=== PATIENT | male | born 1965 | race Caucasian/White ===

== ENCOUNTER 2017-09-02 23:17 | Emergency (ER) | payer OTHER ==
--- NOTE | 2017-09-03 02:50 | EDPHYS ---
Physician Documentation [facility] Name: Eloy Alvarez Age: 52 yrs Sex: Male : 1965 Arrival Date: 09/02/2017 Time: 23:22 Bed 15 Private MD: ED Physician Arya Jones HPI: 09/03 01:27 This 52 yrs old Male presents to ER via Ambulatory with complaints of snw Congestion, Cough. 01:27 The patient or guardian reports cough, described as moderate. Onset: The snw symptoms/episode began/occurred suddenly, 4 day(s) ago, and became persistent. Associated signs and symptoms: Pertinent positives: this patient has no pertinent positive symptoms. Severity of symptoms: At their worst the symptoms were moderate. The patient has experienced a previous episode. The patient has not recently seen a physician. Sees Dr. Nava and Dr. Henry. Historical: - Allergies: 09/02 23:47 No Known Allergies; mw - Home Meds: 23:47 Lasix Oral [Active]; Plavix Oral [Active]; Tricor Oral [Active]; Lopressor Oral mw [Active]; Wellbutrin Oral [Active]; Fluoxetine Oral [Active]; - PMHx: 23:47 Myocardial infarction; Hypertension; mw - PSHx: 23:47 cardiac stents; mw - Immunization history:: Adult Immunizations up to date. - Social history:: Smoking status: Patient/guardian denies using tobacco, the patient reports quitting approximately 14 years ago. ROS: 09/03 01:25 Constitutional: Negative for fever, chills, and weight loss, Eyes: Negative for injury, snw pain, redness, and discharge, ENT: Negative for injury, pain, and discharge, Neck: Negative for injury, pain, and swelling, Cardiovascular: Negative for chest pain, palpitations, and edema, Respiratory: Negative for shortness of breath, wheezing, and pleuritic chest pain, + cough Abdomen/GI: Negative for abdominal pain, nausea, vomiting, diarrhea, and constipation, Back: Negative for injury and pain, : Negative for injury, bleeding, discharge, and swelling, MS/Extremity: Negative for injury and deformity, Skin: Negative for injury, rash, and discoloration, Neuro: Negative for headache, weakness, numbness, tingling, and seizure. Exam: 01:25 Constitutional: This is a well developed, well nourished patient who is awake, alert, snw and in no acute distress. Head/Face: Normocephalic, atraumatic. Eyes: Pupils equal round and reactive to light, extra-ocular motions intact. Lids and lashes normal. Conjunctiva and sclera are non-icteric and not injected. Cornea within normal limits. Periorbital areas with no swelling, redness, or edema. 01:25 Neck: Trachea midline, no thyromegaly or masses palpated, and no cervical lymphadenopathy. Supple, full range of motion without nuchal rigidity, or vertebral point tenderness. No Meningismus. Chest/axilla: Normal chest wall appearance and motion. Nontender with no deformity. No lesions are appreciated. Cardiovascular: Regular rate and rhythm with a normal S1 and S2. No gallops, murmurs, or rubs. Normal PMI, no JVD. No pulse deficits. Abdomen/GI: Soft, non-tender, with normal bowel sounds. No distension or tympany. No guarding or rebound. No evidence of tenderness throughout. Back: No spinal tenderness. No costovertebral tenderness. Full range of motion. Skin: Warm, dry with normal turgor. Normal color with no rashes, no lesions, and no evidence of cellulitis. MS/ Extremity: Pulses equal, no cyanosis. Neurovascular intact. Full, normal range of motion. Neuro: Awake and alert, GCS 15, oriented to person, place, time, and situation. Cranial nerves II-XII grossly intact. Motor strength 5/5 in all extremities. Sensory grossly intact. Cerebellar exam normal. Normal gait. 01:25 ENT: TM's: are normal, Nose: Nasal mucosa: edematous, Mouth: is normal, Posterior pharynx: post nasal drip, tonsillith noted to right tonsil, Voice: is normal. 01:25 Respiratory: the patient does not display signs of respiratory distress. Vital Signs: 09/02 23:47 BP 126 / 81; Pulse 80; Resp 20; Temp 99.5; Pulse Ox 97% ; Weight 121.11 kg; Height 6 mw ft. 0 in. (182.88 cm); Pain 0/10; 09/03 00:48 BP 146 / 82; Pulse 66; Resp 18; Temp 99.2(O); Pulse Ox 100% on R/A; aa1 02:28 BP 136 / 85; Pulse 71; Resp 18; Pulse Ox 99% on R/A; Pain 0/10; aa1 09/02 23:47 Body Mass Index 36.21 (121.11 kg, 182.88 cm) mw MDM: 00:58 Patient medically screened. [facility] 02:52 Antibiotic administration: Not indicated, the patient does not have an appreciated snw infiltrate, the patient has a suspected viral illness. Data reviewed: vital signs, nurses notes. Data interpreted: Pulse oximetry: on room air is 99 %. Interpretation: normal. Counseling: I had a detailed discussion with the patient and/or guardian regarding: the historical points, exam findings, and any diagnostic results supporting the discharge/admit diagnosis, the presence of at least one elevated blood pressure reading (>120/80) during this emergency department visit, radiology results, the need for outpatient follow up, to return to the emergency department if symptoms worsen or persist or if there are any questions or concerns that arise at home. Special discussion: I have referred the patient to see his PCP for further evaluation of high blood pressure. Based on the history and exam findings, there is no indication for further emergent testing or inpatient evaluation. I discussed with the patient/guardian the need to see the primary care provider for further evaluation of the symptoms. 09/03 01:25 Order name: Chest Pa And Lat (2 Views) XRAY snw Administered Medications: No medications were administered Disposition: 09:10 Co-signature as Attending Physician, Arya Jones MD I agree with the assessment and [facility] plan of care. Disposition: 09/03/17 02:50 Discharged to Home. Impression: Acute upper respiratory infection, unspecified, Nasal congestion. - Condition is Stable. - Discharge Instructions: Hay Fever, Upper Respiratory Infection, Adult, Cool Mist Vaporizers, Rehydration, Adult. - Prescriptions for Nasonex 50 mcg/actuation Nasal spray,non- aerosol - spray 2 spray by INTRANASAL route once daily; 1 Container. - Work release form, Medication Reconciliation Form, Thank You Letter, Antibiotic Education, Prescription Opioid Use form. - Follow up: Private Physician; When: 1 - 2 days; Reason: Recheck today's complaints, Continuance of care, Re-evaluation by your physician. Follow up: Emergency Department; When: As needed; Reason: Worsening of condition. Signatures: Dispatcher [employer] Cynthia Lopez RN RN mw Bonnie Esquivel RN RN aa1 Arya Jones MD MD cha Therrien, Shelly, IRON-C MAIL CENSOR-Csnw
--- NOTE | 2017-09-03 02:50 | ER ---
Nurse's Notes [facility] Name: Eloy Alvarez Age: 52 yrs Sex: Male : 1965 Arrival Date: 09/02/2017 Time: 23:22 Bed 15 Private MD: Diagnosis: Acute upper respiratory infection, unspecified;Nasal congestion Presentation: 09/02 23:43 Presenting complaint: Patient states: non productive cough and nasal congestion x 5 mw days. Transition of care: patient was not received from another setting of care. Onset of symptoms was August 28, 2017. Care prior to arrival: Medication(s) given: Mucinex. 23:43 Method Of Arrival: Ambulatory mw 23:43 Acuity: JOY 4 mw Triage Assessment: 23:47 General: Appears in no apparent distress. Behavior is calm, cooperative. Pain: Denies mw pain. Respiratory: Breath sounds with rhonchi bilaterally. Historical: - Allergies: 23:47 No Known Allergies; mw - Home Meds: 23:47 Lasix Oral [Active]; Plavix Oral [Active]; Tricor Oral [Active]; Lopressor Oral mw [Active]; Wellbutrin Oral [Active]; Fluoxetine Oral [Active]; - PMHx: 23:47 Myocardial infarction; Hypertension; mw - PSHx: 23:47 cardiac stents; mw - Immunization history:: Adult Immunizations up to date. - Social history:: Smoking status: Patient/guardian denies using tobacco, the patient reports quitting approximately 14 years ago. Screenin/12 00:50 Abuse screen: Denies threats or abuse. Denies injuries from another. Nutritional aa1 screening: No deficits noted. Tuberculosis screening: No symptoms or risk factors identified. Fall Risk None identified. Assessment: 00:50 General: Appears in no apparent distress. comfortable, Behavior is calm, cooperative, aa1 appropriate for age. Pain: Denies pain. Neuro: Level of Consciousness is awake, alert, obeys commands, Oriented to person, place, time, situation, Moves all extremities. Full function Gait is steady. Cardiovascular: Heart tones S1 S2 present Capillary refill < 3 seconds Patient's skin is warm and dry. Rhythm is regular. Respiratory: Reports cough that is non-productive, Airway is patent Respiratory effort is even, unlabored, Respiratory pattern is regular, symmetrical, Breath sounds are clear bilaterally. GI: No signs and/or symptoms were reported involving the gastrointestinal system. : No signs and/or symptoms were reported regarding the genitourinary system. EENT: Reports nasal congestion. Derm: Skin is intact, is healthy with good turgor, Skin is pink, warm \T\ dry. Musculoskeletal: Circulation, motion, and sensation intact. Capillary refill < 3 seconds. 02:28 Reassessment: Patient appears in no apparent distress at this time. Patient and/or aa1 family updated on plan of care and expected duration. Pain level reassessed. Patient is alert, oriented x 3, equal unlabored respirations, skin warm/dry/pink. Awaiting provider reassessment]. 03:10 Reassessment: Patient appears in no apparent distress at this time. Patient is alert, aa1 oriented x 3, equal unlabored respirations, skin warm/dry/pink. Discussed d/c \T\ f/u instructions with pt; denies questions or concerns at this time Patient states feeling better. Vital Signs: 09/02 23:47 BP 126 / 81; Pulse 80; Resp 20; Temp 99.5; Pulse Ox 97% ; Weight 121.11 kg; Height 6 mw ft. 0 in. (182.88 cm); Pain 0/10; 09/03 00:48 BP 146 / 82; Pulse 66; Resp 18; Temp 99.2(O); Pulse Ox 100% on R/A; aa1 02:28 BP 136 / 85; Pulse 71; Resp 18; Pulse Ox 99% on R/A; Pain 0/10; aa1 09/02 23:47 Body Mass Index 36.21 (121.11 kg, 182.88 cm) ED Course: 09/02 23:22 Patient arrived in ED. do 23:44 Triage completed. mw 23:47 Arm band placed on right wrist. Patient placed in waiting room. 09/03 00:48 Bonnie Esquivel RN is Primary Nurse. aa1 00:49 Patient has correct armband on for positive identification. Bed in low position. Call aa1 light in reach. Pulse ox on. NIBP on. 00:57 Milka Cross FNP-C is PHCP. snw 00:57 Arya Jones MD is Attending Physician. snw 02:36 Patient moved to radiology via wheelchair. kw 02:36 X-ray completed. Patient tolerated procedure well. kw 02:36 Patient moved back from radiology. kw 02:37 Chest Pa And Lat (2 Views) XRAY In Process Unspecified. EDMS 03:10 No provider procedures requiring assistance completed. Patient did not have IV access aa1 during this emergency room visit. Administered Medications: No medications were administered Outcome: 02:50 Discharge ordered by MD. snw 03:10 Discharged to home ambulatory, with family. aa1 03:10 Condition: good 03:10 Discharge instructions given to patient, Instructed on discharge instructions, follow up and referral plans. medication usage, Demonstrated understanding of instructions, follow-up care, medications, Prescriptions given X 1. 03:12 Patient left the ED. aa1 Signatures: Dispatcher [employer] EDMS Cynthia Seymour RN RN Bonnie Fletcher RN RN aa1 Milka Cross, FOOD SAFETY AUDITOR-C FOOD SAFETY AUDITOR-Csnw Katie Holbrook Danielle do
[2017-09-03 03:16] VITALS: TEMP 99.2
[2017-09-03 03:17] VITALS: BP 136/85; O2SAT 99
--- NOTE | 2017-09-03 08:51 | RAD REPORT ---
EXAM DESCRIPTION: Yoselyn Pereyra (2 Views)09/03/2017 2:41 am CLINICAL HISTORY: Cough COMPARISON: None FINDINGS: The lungs appear clear of acute infiltrate. The heart is normal size IMPRESSION: No acute abnormalities displayed
== END 2017-09-03 03:12 | disposition home or self-care (01) ==
LOC: ER 23:17
DX: J06.9 Acute upper respiratory infection, unspecified (principal); R09.81 Nasal congestion; I10 Essential (primary) hypertension; I25.2 Old myocardial infarction; Z79.01 Long term (current) use of anticoagulants; Z95.818 Presence of other cardiac implants and grafts
CPT/HCPCS: 71046; 99283

== ENCOUNTER 2019-02-03 01:21 | Emergency (ER) | payer OTHER ==
[2019-02-03] MEDS ORDERED: ALBUTEROL 2.5 MG/3 ML NEB SOL ONE (03:02)
[2019-02-03] MEDS ORDERED: IPRATROPIUM BROM 0.5MG/2.5ML ONE (03:02)
[2019-02-03 03:03] LABS: Arterial Blood Carboxyhemoglob 0.6 % (0-1.5); Blood O2 Saturation 96.3 % (92-98.5)
[2019-02-03] MEDS ORDERED: LORAZEPAM 1 MG TABLET ONE (03:45)
[2019-02-03 03:48] LABS: Absolute Lymphocytes (CBC) 1.9 K/uL (0.7-4.9); Basophils % 0.9 % (0-1.3); Hematocrit 39.6 % (39.6-49.0); Lymphocytes % 19.6 % (15.3-44.8); MPV 10.7 fL (7.6-11.3); RBC Red Blood Cell Count 4.46 M/uL (4.33-5.43)
[2019-02-03 03:52] LABS: Protime INR 1.09
[2019-02-03 04:03] LABS: ALT/SGPT 46 U/L (12-78); AST/SGOT 43 U/L (15-37); Alkaline Phosphatase 80 U/L (45-117); BUN Blood Urea Nitrogen 14 mg/dL (7-18); Bicarbonate 25 mmol/L (21-32); Bilirubin Direct 0.2 mg/dL (0-0.2); Bilirubin Total 0.5 mg/dL (0.2-1.0); Glucose Level 88 mg/dL (74-106); Magnesium 2.3 mg/dL (1.8-2.4); NT PRO-BNP 108 pg/mL (<125); Potassium 3.5 mmol/L (3.5-5.1); Protein, Total 7.4 g/dL (6.4-8.2); Sodium Level 140 mmol/L (136-145); Troponin (Emerg Dept Use Only) < 0.02 ng/mL (0.0-0.045)
--- NOTE | 2019-02-03 04:17 | ER ---
Nurse's Notes [facility] Name: Eloy Alvarez Age: 53 yrs Sex: Male : 1965 Arrival Date: 02/03/2019 Time: 01:26 Bed 18 Private MD: Diagnosis: Dyspnea;Anxiety disorder, unspecified;Chronic obstructive pulmonary disease, unspecified;Schizophrenia;Unspecified kidney failure-insufficency Presentation: 02/03 01:45 Presenting complaint: Patient states: that he is having difficulty breathing for many years. Also has body aches because he has been pacing the floor 16 hrs a day to make the breathing better for some time. States that he came in today because it has been getting worse over the last 2 years. Transition of care: patient was not received from another setting of care. Onset of symptoms was 2015. Risk Assessment: Do you want to hurt yourself or someone else? Patient reports no desire to harm self or others. Initial Sepsis Screen: Does the patient meet any 2 criteria? No. Patient's initial sepsis screen is negative. Does the patient have a suspected source of infection? No. Patient's initial sepsis screen is negative. Care prior to arrival: None. 01:45 Method Of Arrival: Ambulatory 01:45 Acuity: JOY 3 fc Triage Assessment: 02:12 Respiratory: Onset: The symptoms/episode began/occurred "for 30 years", the patient has jd3 mild shortness of breath. Historical: - Allergies: 01:51 No Known Allergies; fc - PMHx: 01:51 Hypertension; Myocardial infarction; Depression; Anxiety; Seizures; fc - PSHx: 01:51 Heart stents; fc - Immunization history:: Last tetanus immunization: up to date. - Social history:: Smoking status: Patient/guardian denies using tobacco, the patient reports quitting approximately 15 years ago. - Ebola Screening: : Patient negative for fever greater than or equal to 101.5 degrees Fahrenheit, and additional compatible Ebola Virus Disease symptoms Patient denies exposure to infectious person Patient denies travel to an Ebola-affected area in the 21 days before illness onset. - Family history:: not pertinent. Screenin:11 Abuse screen: Denies threats or abuse. Nutritional screening: No deficits noted. jd3 Tuberculosis screening: No symptoms or risk factors identified. Fall Risk Ambulatory Aid- None/Bed Rest/Nurse Assist (0 pts). Gait- Normal/Bed Rest/Wheelchair (0 pts) Mental Status- Oriented to own ability (0 pts). Total Bland Fall Scale indicates No Risk (0-24 pts). Assessment: 02:10 General: Appears in no apparent distress. uncomfortable, Behavior is calm, cooperative, jd3 appropriate for age. Pain: Denies pain. Neuro: Level of Consciousness is awake, alert, obeys commands, Oriented to person, place, time, situation. Cardiovascular: Capillary refill < 3 seconds Patient's skin is warm and dry. Respiratory: Reports shortness of breath since pt states: "for the last 30 years." Airway is patent Respiratory effort is even, unlabored, Respiratory pattern is regular, symmetrical, Breath sounds are clear bilaterally. GI: No signs and/or symptoms were reported involving the gastrointestinal system. : No signs and/or symptoms were reported regarding the genitourinary system. EENT: No signs and/or symptoms were reported regarding the EENT system. Derm: Skin is intact, Skin is dry, Skin is normal, Skin temperature is warm. Musculoskeletal: Circulation, motion, and sensation intact. Range of motion: intact in all extremities. 02:40 Reassessment: pt refusing IV. agreed to blood work and other test. jd3 03:26 Reassessment: Patient appears in no apparent distress at this time. No changes from jd3 previously documented assessment. Patient and/or family updated on plan of care and expected duration. Pain level reassessed. Patient is alert, oriented x 3, equal unlabored respirations, skin warm/dry/pink. 03:47 Reassessment: pt voicing anxiety about breathing better. verbal reassurance given to pt jd3 and provider notified. 04:27 Reassessment: Patient appears in no apparent distress at this time. Patient and/or jd3 family updated on plan of care and expected duration. Pain level reassessed. Patient is alert, oriented x 3, equal unlabored respirations, skin warm/dry/pink. pt reported understanding of discharge instructions. even and steady gait upon discharge. Patient states feeling better. Vital Signs: 01:45 BP 102 / 76; Pulse 61; Resp 18; Temp 97.7(O); Pulse Ox 100% on R/A; Weight 120.2 kg fc (R); Height 6 ft. 0 in. (182.88 cm) (R); Pain 7/10; 03:25 BP 117 / 74; Pulse 58; Resp 17 S; Pulse Ox 100% on R/A; jd3 01:45 Body Mass Index 35.94 (120.20 kg, 182.88 cm) ED Course: 01:26 Patient arrived in ED. ag3 01:45 Arm band placed on Patient placed in an exam room, on a stretcher. 01:48 Triage completed. 02:07 Arya Jones MD is Attending Physician. otis 02:08 Chao Lopez, LANCE is Primary Nurse. jd3 02:12 Patient has correct armband on for positive identification. Bed in low position. Call jd3 light in reach. Side rails up X 1. 02:47 X-ray completed. Portable x-ray completed in exam room. Patient tolerated procedure kw well. 02:49 XRAY Chest (1 view) In Process Unspecified. EDFL 04:28 No provider procedures requiring assistance completed. Patient did not have IV access jd3 during this emergency room visit. Administered Medications: 03:05 Drug: Albuterol 2.5 mg Route: Inhalation; jd3 03:47 Follow up: Response: No adverse reaction jd3 03:05 Drug: AtroVENT Aerosol 0.5 mg Route: Inhalation; jd3 03:48 Follow up: Response: No adverse reaction jd3 03:45 Drug: Ativan 1 mg Route: PO; jd3 04:27 Follow up: Response: No adverse reaction jd3 04:27 Not Given (Patient Refused): NS 0.9% 1000 ml IV at 125 ml/hr continuous jd3 Outcome: 04:16 Discharge ordered by . otis 04:28 Discharged to home ambulatory. jd3 04:28 Condition: stable 04:28 Discharge instructions given to patient, Instructed on discharge instructions, follow up and referral plans. medication usage, Demonstrated understanding of instructions, follow-up care, medications, Prescriptions given X 4. 04:29 Patient left the ED. jd3 Signatures: Dispatcher [employer] EDFL Arya Jones MD MD cha Chretien, Felicia, RN RN Katie Holbrook Jonathon, RN RN j Brooklyn Pelayo ag3 Corrections: (The following items were deleted from the chart) 03:27 03:26 Reassessment: Patient appears in no apparent distress at this time. No changes jd3 from previously documented assessment. Patient and/or family updated on plan of care and expected duration. Pain level reassessed. Patient is alert, oriented x 3, equal unlabored respirations, skin warm/dry/pink. awaiting admission orders and room assignment jd3 03:30 03:25 BP 113 / 69; Pulse 96bpm; Resp 17bpm; Spontaneous; Pulse Ox 95% RA; Pain 0/10; [id number]
--- NOTE | 2019-02-03 04:18 | EDPHYS ---
Physician Documentation [facility] Name: Eloy Alvarez Age: 53 yrs Sex: Male : 1965 Arrival Date: 02/03/2019 Time: 01:26 Bed 18 Private MD: ROSEANNA Physician Arya Jones HPI: 02/03 02:29 This 53 yrs old Male presents to ER via Ambulatory with complaints of otis Breathing Difficulty. 02:29 The patient has shortness of breath at rest, with light activity, that woke him/her otis from sleep. Onset: The symptoms/episode began/occurred just prior to arrival, this morning. Duration: The symptoms are continuous, and are steadily getting worse. The patient's shortness of breath is aggravated by nothing, is alleviated by nothing. Associated signs and symptoms: Pertinent positives: anxiety. Severity of symptoms: At their worst the symptoms were mild moderate in the emergency department the symptoms have improved moderately. The patient has experienced similar episodes in the past, a few times. Historical: - Allergies: 01:51 No Known Allergies; fc - PMHx: 01:51 Hypertension; Myocardial infarction; Depression; Anxiety; Seizures; fc - PSHx: 01:51 Heart stents; fc - Immunization history:: Last tetanus immunization: up to date. - Social history:: Smoking status: Patient/guardian denies using tobacco, the patient reports quitting approximately 15 years ago. - Ebola Screening: : Patient negative for fever greater than or equal to 101.5 degrees Fahrenheit, and additional compatible Ebola Virus Disease symptoms Patient denies exposure to infectious person Patient denies travel to an Ebola-affected area in the 21 days before illness onset. - Family history:: not pertinent. ROS: 02:29 Constitutional: Negative for fever, chills, and weight loss, Eyes: Negative for injury, otis pain, redness, and discharge, ENT: Negative for injury, pain, and discharge, Neck: Negative for injury, pain, and swelling, Cardiovascular: Negative for chest pain, palpitations, and edema, Abdomen/GI: Negative for abdominal pain, nausea, vomiting, diarrhea, and constipation, Back: Negative for injury and pain, : Negative for injury, bleeding, discharge, and swelling, MS/Extremity: Negative for injury and deformity, Skin: Negative for injury, rash, and discoloration, Neuro: Negative for headache, weakness, numbness, tingling, and seizure, Allergy/Immunology: Negative for hives, rash, and allergies, Endocrine: Negative for neck swelling, polydipsia, polyuria, polyphagia, and marked weight changes, Hematologic/Lymphatic: Negative for swollen nodes, abnormal bleeding, and unusual bruising. 02:29 Respiratory: Positive for cough, shortness of breath, at rest. 02:29 Psych: Positive for anxiety. Exam: :29 Constitutional: This is a well developed, well nourished patient who is awake, alert, otis and in no acute distress. Head/Face: Normocephalic, atraumatic. Eyes: Pupils equal round and reactive to light, extra-ocular motions intact. Lids and lashes normal. Conjunctiva and sclera are non-icteric and not injected. Cornea within normal limits. Periorbital areas with no swelling, redness, or edema. ENT: Nares patent. No nasal discharge, no septal abnormalities noted. Tympanic membranes are normal and external auditory canals are clear. Oropharynx with no redness, swelling, or masses, exudates, or evidence of obstruction, uvula midline. Mucous membranes moist. Neck: Trachea midline, no thyromegaly or masses palpated, and no cervical lymphadenopathy. Supple, full range of motion without nuchal rigidity, or vertebral point tenderness. No Meningismus. Chest/axilla: Normal chest wall appearance and motion. Nontender with no deformity. No lesions are appreciated. Cardiovascular: Regular rate and rhythm with a normal S1 and S2. No gallops, murmurs, or rubs. Normal PMI, no JVD. No pulse deficits. Respiratory: Lungs have equal breath sounds bilaterally, clear to auscultation and percussion. No rales, rhonchi or wheezes noted. No increased work of breathing, no retractions or nasal flaring. Abdomen/GI: Soft, non-tender, with normal bowel sounds. No distension or tympany. No guarding or rebound. No evidence of tenderness throughout. Back: No spinal tenderness. No costovertebral tenderness. Full range of motion. Male : Normal genitalia with no discharge or lesions. Skin: Warm, dry with normal turgor. Normal color with no rashes, no lesions, and no evidence of cellulitis. MS/ Extremity: Pulses equal, no cyanosis. Neurovascular intact. Full, normal range of motion. Neuro: Awake and alert, GCS 15, oriented to person, place, time, and situation. Cranial nerves II-XII grossly intact. Motor strength 5/5 in all extremities. Sensory grossly intact. Cerebellar exam normal. Normal gait. Psych: Awake, alert, with orientation to person, place and time. Behavior, mood, and affect are within normal limits. Vital Signs: 01:45 BP 102 / 76; Pulse 61; Resp 18; Temp 97.7(O); Pulse Ox 100% on R/A; Weight 120.2 kg fc (R); Height 6 ft. 0 in. (182.88 cm) (R); Pain 7/10; 03:25 BP 117 / 74; Pulse 58; Resp 17 S; Pulse Ox 100% on R/A; jd3 01:45 Body Mass Index 35.94 (120.20 kg, 182.88 cm) MDM: 02:08 Patient medically screened. [facility] 02:31 Data reviewed: vital signs, nurses notes, lab test result(s), EKG, radiologic studies, otis plain films. 02/03 02:29 Order name: Basic Metabolic Panel; Complete Time: 04:15 [facility] 02/03 02:29 Order name: CBC with Diff; Complete Time: 04:15 [facility] 02/03 02:29 Order name: LFT's; Complete Time: 04:15 [facility] 02/03 02:29 Order name: Magnesium; Complete Time: 04:15 [facility] 02/03 02:29 Order name: NT PRO-BNP; Complete Time: 04:15 [facility] 02/03 02:29 Order name: PT-INR; Complete Time: 04:15 [facility] 02/03 02:29 Order name: Troponin (emerg Dept Use Only); Complete Time: 04:15 [facility] 02/03 02:29 Order name: XRAY Chest (1 view) [facility] 02/03 02:29 Order name: ABG; Complete Time: 03:23 [facility] 02/03 02:29 Order name: D-Dimer; Complete Time: 04:15 [facility] 02/03 02:29 Order name: EKG; Complete Time: 02:31 [facility] 02/03 02:29 Order name: Cardiac monitoring; Complete Time: 03:08 [facility] 02/03 02:29 Order name: EKG - Nurse/Tech; Complete Time: 03:08 [facility] 02/03 02:29 Order name: O2 Per Protocol; Complete Time: 03:05 [facility] 02/03 02:29 Order name: O2 Sat Monitoring; Complete Time: 03:05 [facility] Administered Medications: 03:05 Drug: Albuterol 2.5 mg Route: Inhalation; jd3 03:47 Follow up: Response: No adverse reaction jd3 03:05 Drug: AtroVENT Aerosol 0.5 mg Route: Inhalation; jd3 03:48 Follow up: Response: No adverse reaction jd3 03:45 Drug: Ativan 1 mg Route: PO; jd3 04:27 Follow up: Response: No adverse reaction jd3 04:27 Not Given (Patient Refused): NS 0.9% 1000 ml IV at 125 ml/hr continuous jd3 Disposition: 02/03/19 04:16 Discharged to Home. Impression: Dyspnea, Anxiety disorder, unspecified, Chronic obstructive pulmonary disease, unspecified, Schizophrenia, Unspecified kidney failure - insufficency. - Condition is Stable. - Discharge Instructions: Panic Attacks, Chronic Bronchitis, Schizophrenia, Chronic Obstructive Pulmonary Disease Exacerbation, Panic Attacks, [id number], Chronic Kidney Disease, Adult, [id number], Cough, Adult. - Prescriptions for Zithromax Z- Eleazar 250 mg Oral Tablet - take 1 tablet by ORAL route as directed for 5 days Day 1 - take two (2) tablets one time. Day 2, 3, 4 , 5 take one (1) tablet once daily.; 6 tablet. Medrol (Eleazar) 4 mg Oral Tablets, Dose Pack - take 1 tablet by ORAL route as directed - follow package instructions; 1 packet. Albuterol Sulfate 90 mcg/actuation - inhale 1-2 puff by INHALATION route every 4-6 hours; 1 Inhaler. Klonopin 1 mg Oral Tablet - take 1 tablet by ORAL route every 12 hours As needed; 20 tablet. - Medication Reconciliation Form, Thank You Letter, Antibiotic Education, Prescription Opioid Use form. - Follow up: Private Physician; When: 2 - 3 days; Reason: Recheck today's complaints, Continuance of care, Re-evaluation by your physician. - Problem is new. - Symptoms have improved. Signatures: Dispatcher [employer] Arya Villeda MD MD cha Chretien, Felicia, RN RN fc Davies, Jonathon, RN RN jd3 Corrections: (The following items were deleted from the chart) 04:29 04:16 02/03/2019 04:16 Discharged to Home. Impression: Dyspnea; Anxiety disorder, jd3 unspecified; Chronic obstructive pulmonary disease, unspecified; Schizophrenia; Unspecified kidney failure - insufficency. Condition is Stable. Discharge Instructions: Panic Attacks, Chronic Bronchitis, Chronic Obstructive Pulmonary Disease Exacerbation, Panic Attacks, Vitt-[id number]-Fpok, Cough, Adult, Schizophrenia. Prescriptions for Zithromax Z-Eleazar 250 mg Oral Tablet - take 1 tablet by ORAL route as directed for 5 days Day 1 - take two (2) tablets one time. Day 2, 3, 4 , 5 take one (1) tablet once daily.; 6 tablet, Medrol (Eleazar) 4 mg Oral Tablets, Dose Pack - take 1 tablet by ORAL route as directed - follow package instructions; 1 packet, Albuterol Sulfate 90 mcg/actuation - inhale 1-2 puff by INHALATION route every 4-6 hours; 1 Inhaler, Klonopin 1 mg Oral Tablet - take 1 tablet by ORAL route every 12 hours As needed; 20 tablet. and Forms are Medication Reconciliation Form, Thank You Letter, Antibiotic Education, Prescription Opioid Use. Follow up: Private Physician; When: 2 - 3 days; Reason: Recheck today's complaints, Continuance of care, Re-evaluation by your physician. Problem is new. Symptoms have improved. otis
[2019-02-03 04:45] VITALS: TEMP 97.7; O2SAT 100
[2019-02-03 04:47] VITALS: BP 117/74
--- NOTE | 2019-02-03 08:13 | RAD REPORT ---
EXAM DESCRIPTION: RAD - Chest Single View - 02/03/2019 2:48 am CLINICAL HISTORY: Cough;COPD Chest pain. COMPARISON: Chest Pa And Lat (2 Views) dated 09/03/2017; CHEST SINGLE VIEW dated 12/15/2011 FINDINGS: Portable technique limits examination quality. The lungs are grossly clear. The heart is normal in size. No displaced fractures. IMPRESSION: No acute intrathoracic process suspected.
--- NOTE | 2019-02-03 11:08 | EKG ---
Test Date: 2019-02-03 Test Time: 02:37:59 Director Adult: DEWEY MEASUREMENT RESULTS: Intervals: Rate: 59 OH: 206 QRSD: 126 QT: 454 QTc: 449 [place]: P: 30 OH: 206 QRS: -15 T: 71 INTERPRETIVE STATEMENTS: Sinus bradycardia Nonspecific intraventricular block Anterolateral infarct, age undetermined Abnormal ECG Compared to ECG 12/15/2011 01:52:39 Sinus rhythm no longer present Left-axis deviation no longer present Left ventricular hypertrophy no longer present Early repolarization no longer present Myocardial infarct finding still present Electronically Signed On 02-03-19 11:06:04 CDT by iRcco Benjamin
== END 2019-02-03 04:29 | disposition home or self-care (01) ==
LOC: ER 01:21
DX: J44.9 Chronic obstructive pulmonary disease, unspecified (principal); F41.9 Anxiety disorder, unspecified; N19 Unspecified kidney failure; F20.9 Schizophrenia, unspecified
CPT/HCPCS: 36415; 71045; 80048; 80076; 82805; 83735; 83880; 84484; 85025; 85379; 85610; 93005; 99284

== ENCOUNTER 2024-08-03 21:47 | Emergency (ER) | payer OTHER ==
[2024-08-03 23:47] LABS: Sqamous Epithelial None Seen /HPF (None Seen); Urine Bacteria <20 /HPF (<20); Urine Culture Reflex Order REFLEXED; Urine Mucus Slight /HPF (None Seen); Urine RBC >50 /HPF (None Seen); Urine WBC >50 /HPF (<5); Urine WBC Clump Occasional /HPF (None Seen)
[2024-08-03 23:48] LABS: Specific Gravity 1.012 (1.005-1.030); Urine Bilirubin NEGATIVE (Negative); Urine Blood 3+ (OVER) (Negative); Urine Clarity Extremely Turbid (Clear); Urine Color Light-Red (Yellow); Urine Glucose NEGATIVE (Negative); Urine Ketones NEGATIVE (Negative); Urine Microscopic Reflex YN NO UMIC; Urine Nitrite NEGATIVE (Negative); Urine Protein 3+ (Negative); Urine Urobilinogen Normal (Normal)
[2024-08-03 23:52] LABS: Absolute Basophils 0.1 K/uL (0-0.5); Absolute Eosinophils 0.2 K/uL (0-0.5); Absolute Neutrophil 13.4 K/uL (1.8-8.0); Basophils % 0.5 % (0-1.3); Eosinophils % 1.2 % (0-4.4); Hematocrit 38.8 % (39.6-49.0); Hemoglobin 13.4 g/dL (13.6-17.9); Lymphocytes % 6.4 % (15.3-44.8); MCH 30.6 pg (27.0-35.0); MCHC 34.6 g/dL (32.0-36.0); MCV 88.3 fL (80-100); MPV 10.2 fL (7.6-11.3); Monocytes % 6.6 % (3.3-12.3); Neutrophils % 85.3 % (41.7-73.7); Platelets 241 thou/uL (152-406); RBC Red Blood Cell Count 4.39 M/uL (4.33-5.43); Red Cell Distribution Width 13.8 % (12.1-15.2)
[2024-08-03 23:58] LABS: Albumin 3.5 g/dL (3.4-5.0); Albumin/Globulin Ratio 0.8 (1.1-1.8); Anion Gap 8.4 mEq/L (5.0-15.0); Bilirubin Total 0.7 mg/dL (0.2-1.0); Globulin 4.3 g/dL (2.3-3.5); Potassium 3.4 mEq/L (3.5-5.1); Protein, Total 7.8 g/dL (6.4-8.2)
--- NOTE | 2024-08-04 | RAD REPORT ---
EXAM: CT Abdomen and Pelvis Without Intravenous Contrast CLINICAL HISTORY: HEMATURIA TECHNIQUE: Axial computed tomography images of the abdomen and pelvis without intravenous contrast. Sagittal a nd coronal reformatted images were created and reviewed. This CT exam was performed using one or more of the following dose reduction techniques: automated exposure control, adjustment of the mA a nd/or kV according to patient size, and/or use of iterative reconstruction technique. COMPARISON: No relevant prior studies available. FINDINGS: Lung bases: 7mm and 4mm right lower lobe nodules (series 201 images 17 and 23, respectively). No consolidation. Heart: Coronary artery calcification. ABDOMEN: Liver: Unremarkable. Gallbladder and bile ducts: Gallstones within a contracted gallbladder. No ductal dilation. Pancreas: Unremarkable. No ductal dilation. Spleen: Unremarkable. No splenomegaly. Adrenals: 1.3 cm macroscopic fat density left adrenal nodule compatible with a myelolipoma. No foll ow-up imaging is recommended. JACR 2017 Dec; 14(8):1038-44, JCAT 2016 Jul-Aug; 40(2):194-200, Urol J spring; 3(2):71-4. Kidneys and ureters: No calculi. No hydronephrosis. Right renal cysts, the largest measuring 3.9 cm . No follow-up imaging is recommended. JACR 2017; 264-273, Management of the Incidental Renal Mass on CT, [employer] 2020; 814-848, Bosniak Classification of Cystic Renal Masses, Version 2019. Stomach and bowel: Unremarkable. No obstruction. No mucosal thickening. PELVIS: Appendix: Normal caliber appendix. No findings to suggest acute appendicitis. Bladder: Moderate to severe urinary bladder wall thickening. No stones. Reproductive: Unremarkable as visualized. ABDOMEN and PELVIS: Intraperitoneal space: Unremarkable. No free air. No significant fluid collection. Bones/joints: Multilevel spondylosis. No acute fracture. No dislocation. Soft tissues: Small fat-containing umbilical and bilateral inguinal hernias. Vasculature: Mild atherosclerotic disease. No abdominal aortic aneurysm. Lymph nodes: Car hepatic and portacaval lymph nodes measuring up to 14 mm in short axis. IMPRESSION: 1. No renal, ureteral or bladder calculi. No evidence for renal obstruction. 2. Moderate to severe urinary bladder wall thickening. Please correlate clinically for cystitis. 3. Right lower lobe nodules measuring 7 mm and 4 mm. Per Fleischner Society Guidelines, recommend a non-contrast Chest CT at 3-6 months, then consider another non-contrast Chest CT at 18-24 months. If patient is low risk for malignancy, non-contrast Chest CT at 18-24 months is optional. These guide lines do not apply to immunocompromised patients and patients with cancer. Follow up in patients with significant comorbidities as clinically warranted. For lung cancer screening, adhere to Lung-RAD S guidelines. Reference: Radiology. 2017; 284(1):228-43. 4. Other findings as above. Electronically signed by: Dm iVllanueva MD 08/03/2024 11:31 PM CDT RP Due to temporary technical issues with the PACS/[employer] reporting system, reports are being celestine d by the in-house radiologist without review as a courtesy to ensure prompt reporting the interpreting radiologist is fully responsible for the content of the report. Transcribed Date/Time: 08/03/2024 11:59 PM
--- NOTE | 2024-08-04 00:11 | ER ---
Nurse's Notes [facility] Name: Eloy Alvarez Age: 59 yrs Sex: Male : 1965 Arrival Date: 08/03/2024 Time: 21:47 Bed 5 Private MD: Diagnosis: Acute cystitis with hematuria Presentation: 08/03 22:15 Chief complaint: Patient states: BURNING WITH URINATION, HEMATURIA FOR THREE DAYS. ha1 22:15 Coronavirus screen: Client denies travel out of the [place] in the last 14 days. Ebola ha1 Screen: No symptoms or risks identified at this time. Initial Sepsis Screen: Does the patient meet any 2 criteria? No. Patient's initial sepsis screen is negative. Does the patient have a suspected source of infection? No. Patient's initial sepsis screen is negative. Risk Assessment: Do you want to hurt yourself or someone else? Patient reports no desire to harm self or others. Onset of symptoms was August 03, 2024. 22:15 Method Of Arrival: Ambulatory ha1 22:15 Acuity: JOY 3 ha1 Triage Assessment: 22:23 General: Appears comfortable, Behavior is calm, cooperative. Pain: Complains of pain in ha1 pelvis Pain currently is 8 out of 10 on a pain scale. Quality of pain is described as burning. Neuro: Level of Consciousness is awake, alert, obeys commands, Oriented to person, place, time, situation. Cardiovascular: Patient's skin is warm and dry. Respiratory: Airway is patent Respiratory effort is even, unlabored, Respiratory pattern is regular, symmetrical. : Reports burning with urination. Historical: - Allergies: 22:23 No Known Allergies; ha1 - Home Meds: 22:23 clopidogrel oral [Active]; ha1 23:44 enalapril maleate Oral [Active]; Furosemide Oral [Active]; Cogentin Oral [Active]; bm8 - PMHx: 22:23 Anxiety; Depression; Hypertension; Myocardial infarction; Seizures; ha1 - PSHx: 23:44 None; bm8 - Immunization history:: Adult Immunizations up to date. - Infectious Disease History:: Denies. - Social history:: Smoking status: Patient/guardian denies using tobacco, the patient reports quitting approximately 22 years ago. Screenin:40 [facility] ED Fall Risk Assessment (Adult) History of falling in the last 3 months, bm8 including since admission No falls in past 3 months (0 pts) Confusion or Disorientation No (0 pts) Intoxicated or Sedated No (0 pts) Impaired Gait No (0 pts) Mobility Assist Device Used No (0 pt) Altered Elimination No (0 pt) Score/Fall Risk Level 0 - 2 = Low Risk Oriented to surroundings, Maintained a safe environment, Educated pt \T\ family on fall prevention, incl call for assistance when getting out of bed, Provided non-skid footwear, Hourly rounding (assess needs \T\ fall precautionary measures) done, Used ambulatory aids as needed (educated on \T\ assisted with), Used gait belt as appropriate. Abuse screen: Denies threats or abuse. Nutritional screening: No deficits noted. Tuberculosis screening: No symptoms or risk factors identified. Assessment: 23:40 Reassessment: Patient appears in no apparent distress at this time. Patient and/or bm8 family updated on plan of care and expected duration. Pain level reassessed. Patient is alert, oriented x 3, equal unlabored respirations, skin warm/dry/pink. General: Appears in no apparent distress. comfortable, Behavior is calm, cooperative, appropriate for age. Pain: Complains of pain in pelvis Pain currently is 6 out of 10 on a pain scale. Quality of pain is described as burning, itching. Neuro: No deficits noted. Level of Consciousness is awake, alert, obeys commands, Oriented to person, place, time, situation, Appropriate for age. Cardiovascular: No deficits noted. Capillary refill < 3 seconds in bilateral fingers Patient's skin is warm and dry. Respiratory: No deficits noted. Airway is patent Trachea midline Respiratory effort is even, unlabored, Respiratory pattern is regular, symmetrical. GI: No deficits noted. No signs and/or symptoms were reported involving the gastrointestinal system. : Urine is cloudy, ruiz blood, Reports burning with urination, pain urgency. EENT: No signs and/or symptoms were reported regarding the EENT system. Derm: No signs and/or symptoms reported regarding the dermatologic system. Musculoskeletal: No signs and/or symptoms reported regarding the musculoskeletal system. 08/04 00:36 Reassessment: Patient appears in no apparent distress at this time. Patient and/or bm8 family updated on plan of care and expected duration. Pain level reassessed. Patient is alert, oriented x 3, equal unlabored respirations, skin warm/dry/pink. Patient states feeling better. Vital Signs: 08/03 22:15 BP 140 / 79; Pulse 66; Resp 17 S; Temp 98.3(T); Pulse Ox 100% on R/A; Weight 117.93 kg; ha1 Height 5 ft. 11 in. ; 23:40 BP 137 / 76; Pulse 75; Resp 18; Temp 98.3; Pulse Ox 99% ; Weight 117.93 kg; Height 5 bm8 ft. 11 in. ; Pain 6/; 08/04 00:36 BP 131 / 83; Pulse 74; Resp 18; Temp 98.3; Pulse Ox 100% ; Pain 310; bm8 08/03 23:40 Body Mass Index 36.26 (117.93 kg, 180.34 cm) bm8 23:40 Pain Scale: Adult bm8 08/04 00:36 Pain Scale: Adult bm8 Steinauer Coma Score: 08/03 23:40 Eye Response: spontaneous(4). Motor Response: obeys commands(6). Verbal Response: bm8 oriented(5). Total: 15. 08/04 00:36 Eye Response: spontaneous(4). Motor Response: obeys commands(6). Verbal Response: bm8 oriented(5). Total: 15. ED Course: 08/03 21:49 Patient arrived in ED. jj6 21:54 [facility] kb 21:54 Noman Jain MD is Attending Physician. kb 22:23 Triage completed. ha1 23:04 Urinalysis w/ reflexes Sent. ha1 23:08 CT Stone Protocol In Process Unspecified. EDMS 23:31 CBC with Diff Sent. vk 23:31 CMP Sent. vk 23:31 Initial lab(s) drawn, by me, sent to lab. Inserted saline lock: 20 gauge in right vk antecubital area, using aseptic technique. 23:37 Chris Self, RN is Primary Nurse. bm8 23:40 No provider procedures requiring assistance completed. Patient maintains SpO2 bm8 saturation greater than 95% on room air. 23:40 Patient has correct armband on for positive identification. Bed in low position. Call bm8 light in reach. Side rails up X 1. Adult w/ patient. Client placed on continuous cardiac and pulse oximetry monitoring. NIBP monitoring applied. Pulse ox on. NIBP on. Door closed. Noise minimized. Pillow given. Verbal reassurance given. Head of bed elevated. 03 00:36 IV discontinued, intact, bleeding controlled, No redness/swelling at site. Pressure bm8 dressing applied. 00:36 Provided Education on: post er care, follow up with PCP. bm8 00:37 Arm band placed on right wrist. bm8 Administered Medications: 00:35 Drug: Rocephin IV 1 grams IV at calculated rate once; Given slow IV push per pharmacy bm8 instructions Route: IV; Rate: calculated rate; Site: right antecubital; 00:37 Follow up: Response: No adverse reaction; IV Status: Completed infusion bm8 Medication: 03 23:40 VIS not applicable for this client. bm8 Outcome: 08/04 00:11 Discharge ordered by . luis felipe 00:36 Discharged to home ambulatory, bm8 00:36 Condition: stable 00:36 Discharge instructions given to patient, family, Instructed on discharge instructions, follow up and referral plans. no drinking with medication, no driving heavy equipment, medication usage, Demonstrated understanding of instructions, follow-up care, medications, Prescriptions given X 1, 00:39 Patient left the ED. bm8 Signatures: Dispatcher [employer] EDMS Sheridan Horton, ALEX PERDUE-Rosangela Corona jj6 Sandy Godinez, RN RN ha1 Aminata Deluna Brad RN RN bm8
--- NOTE | 2024-08-04 00:11 | EDPHYS ---
Physician Documentation [facility] Name: Eloy Alvarez Age: 59 yrs Sex: Male : 1965 Arrival Date: 08/03/2024 Time: 21:47 Bed 5 Private MD: ED Physician Noman Jain HPI: 08/03 22:07 This 59 yrs old Male presents to ER via Unassigned with complaints of Pain With kb Urination, HEMATURIA. 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 kb Reports burning with urination as well. States his urethra itched so he scratched it and the hematuria started after that. Denies abd pain, flank pain, fever. . Historical: - Allergies: 22:23 No Known Allergies; ha1 - Home Meds: 22:23 clopidogrel oral [Active]; ha1 23:44 enalapril maleate Oral [Active]; Furosemide Oral [Active]; Cogentin Oral [Active]; bm8 - PMHx: 22:23 Anxiety; Depression; Hypertension; Myocardial infarction; Seizures; ha1 - PSHx: 23:44 None; bm8 - Immunization history:: Adult Immunizations up to date. - Infectious Disease History:: Denies. - Social history:: Smoking status: Patient/guardian denies using tobacco, the patient reports quitting approximately 22 years ago. ROS: 22:07 Constitutional: As per HPI kb Exam: 22:09 Constitutional: This is a well developed, well nourished patient who is awake, alert, kb and in no acute distress. Head/Face: Normocephalic, atraumatic. ENT: Moist Mucous membranes Cardiovascular: Regular rate Respiratory: Respirations even and unlabored. No increased work of breathing. Talking in full sentences Abdomen/GI: Soft, non-tender. No distention Back: No spinal tenderness. No costovertebral tenderness. Full range of motion. Skin: Warm, dry with normal turgor. Normal color. MS/ Extremity: Pulses equal, no cyanosis. Neurovascular intact. Full, normal range of motion. Neuro: Awake and alert, GCS 15, oriented to person, place, time, and situation. Vital Signs: 22:15 BP 140 / 79; Pulse 66; Resp 17 S; Temp 98.3(T); Pulse Ox 100% on R/A; Weight 117.93 kg; ha1 Height 5 ft. 11 in. ; 23:40 BP 137 / 76; Pulse 75; Resp 18; Temp 98.3; Pulse Ox 99% ; Weight 117.93 kg; Height 5 bm8 ft. 11 in. ; Pain 6/10; 08/04 00:36 BP 131 / 83; Pulse 74; Resp 18; Temp 98.3; Pulse Ox 100% ; Pain 3/10; bm8 08/03 23:40 Body Mass Index 36.26 (117.93 kg, 180.34 cm) bm8 23:40 Pain Scale: Adult bm8 08/04 00:36 Pain Scale: Adult bm8 Nanette Coma Score: 08/03 23:40 Eye Response: spontaneous(4). Motor Response: obeys commands(6). Verbal Response: bm8 oriented(5). Total: 15. 08/04 00:36 Eye Response: spontaneous(4). Motor Response: obeys commands(6). Verbal Response: bm8 oriented(5). Total: 15. MDM: 08/03 21:54 Medical Screening Exam initiated kb 23:05 Data reviewed: vital signs, nurses notes. kb 08/04 00:10 Differential diagnosis: uti, kidney stone, CA. Counseling: I had a detailed discussion kb with the patient and/or guardian regarding the historical points, exam findings, and any diagnostic results supporting the discharge/admit diagnosis, lab results, radiology results, the need for outpatient follow up, a family practitioner, to return to the emergency department if symptoms worsen or persist or if there are any questions or concerns that arise at home. ED course: Discussed all results with pt including lung nodules and recommendation for follow up CT in 3-6 months. . 08/03 22:10 Order name: CBC with Diff kb 08/03 22:10 Order name: CMP; Complete Time: 00:06 kb 08/03 22:10 Order name: Urinalysis w/ reflexes; Complete Time: 00:06 kb 08/03 23:51 Order name: Urine Culture EDAL 08/04 00:09 Order name: Manual Differential EDAL 08/03 22:10 Order name: CT Stone Protocol kb 08/03 22:10 Order name: IV Saline Lock; Complete Time: 23:31 kb 03/12 22:10 Order name: Labs collected and sent; Complete Time: 23:31 kb Administered Medications: 00:35 Drug: Rocephin IV 1 grams IV at calculated rate once; Given slow IV push per pharmacy bm8 instructions Route: IV; Rate: calculated rate; Site: right antecubital; 00:37 Follow up: Response: No adverse reaction; IV Status: Completed infusion bm8 Disposition: 20:51 Co-signature as Attending Physician, Noman Jain MD I agree with the assessment sp4 and plan of care. I reviewed the patient's care provided by the Advanced Practice Provider and agree with the diagnosis and treatment plan. Disposition Summary: 08/04/24 00:11 Discharge Ordered Notes: Location: Home kb Condition: Stable kb Diagnosis - Acute cystitis with hematuria kb Followup: kb - With: Emergency Department - When: As needed - Reason: Worsening of condition Followup: kb - With: Private Physician - When: 2 - 3 days - Reason: Recheck today's complaints, Continuance of care, Re-evaluation by your physician Discharge Instructions: - Discharge Summary Sheet kb - Urinary Tract Infection, Adult, Toyy-wh-Jovx kb Forms: - Medication Reconciliation Form kb - Antibiotic Education kb - Prescription Opioid Use kb - Patient Portal Instructions kb - Leadership Thank You Letter kb Prescriptions: - Augmentin 875-125 mg Oral Tablet - take 1 tablet ORAL route every 12 hours for 10 days; 20 tablet; Refills: 0, kb Product Selection Permitted Signatures: Dispatcher [employer] EDMS Sheridan Horton, BACKEND PYTHON DEVELOPER-C BACKEND PYTHON DEVELOPER-Sandy Mccarty, RN RN ha1 Noman Jain MD MD sp4 Chris Self RN RN bm8 Corrections: (The following items were deleted from the chart) 08/03 22:10 22:10 CBC+H.LAB.BRZ ordered. EDMS EDMS 22:10 22:10 COMPREHENSIVE METABOLIC PANEL+C.LAB.BRZ ordered. EDMS EDMS 22:10 22:10 Urinalysis+U.LAB.BRZ ordered. EDMS EDMS
[2024-08-04] MEDS ORDERED: CEFTRIAXONE 1000 MG/VIAL ONE (00:31)
[2024-08-04] MEDS ORDERED: NA CHLORIDE 0.9% 50 ML ONE (00:31)
[2024-08-04 00:54] LABS: Band Neutrophils 3 % (0-1); Differential Total Cells Count 100; Eosinophils 2 % (0-3); Lymphocytes 2 % (15-42); Monocytes 6 % (0-10); Reactive Lymphocytes 1 %; Segmented Neutrophils 85 % (40-80)
[2024-08-04 00:55] LABS: Blood Morphology Comment NOT SEEN (NOT SEEN); Platelet Estimate ADEQ
[2024-08-04 01:08] VITALS: TEMP 98.3
[2024-08-04 01:15] VITALS: BP 131/83; O2SAT 100
== END 2024-08-04 00:39 | disposition home or self-care (01) ==
LOC: ER 21:47
DX: N30.01 Acute cystitis with hematuria (principal)
CPT/HCPCS: 87088; 85025; 87086; 36415; 81003; 80053; 76377; 74176; 96374; 99284; J0696

== ENCOUNTER 2024-08-20 17:18 | Emergency (ER) | payer OTHER ==
--- NOTE | 2024-08-20 18:25 | RAD REPORT ---
EXAMINATION: TWO VIEW CHEST XR CLINICAL INDICATION: Male, 59 years old. [facility] MA[facility] COU[facility] Bed Name: [facility] TECHNIQUE: 2 view radiographs of the chest were performed. COMPARISON: 02/11/2019 FINDINGS: The lungs are well inflated and clear. No pneumothorax or sizable effusion. The heart is normal in si ze. Mediastinal contours are unremarkable. IMPRESSION: No acute or significant abnormalities.
[2024-08-20 19:53] LABS: Absolute Basophils 0.1 K/uL (0-0.5); Absolute Eosinophils 0.2 K/uL (0-0.5); Absolute Lymphocytes (CBC) 1.8 K/uL (0.7-4.9); Absolute Monocytes 0.5 K/uL (0.1-1.3); Absolute Neutrophil 6.4 K/uL (1.8-8.0); Eosinophils % 2.5 % (0-4.4); Hematocrit 41.3 % (39.6-49.0); Hemoglobin 13.9 g/dL (13.6-17.9); Lymphocytes % 20.1 % (15.3-44.8); MCH 29.9 pg (27.0-35.0); MCHC 33.5 g/dL (32.0-36.0); MPV 9.7 fL (7.6-11.3); Monocytes % 5.4 % (3.3-12.3); Platelets 235 thou/uL (152-406); RBC Red Blood Cell Count 4.64 M/uL (4.33-5.43); Red Cell Distribution Width 13.7 % (12.1-15.2)
[2024-08-20 20:10] LABS: Anion Gap 7.5 mEq/L (5.0-15.0); Potassium 3.5 mEq/L (3.5-5.1); Troponin High Sensitivity 11.7 pg/mL (<58.9)
--- NOTE | 2024-08-20 20:14 | ER ---
Nurse's Notes [facility] Name: Eloy Alvarez Age: 59 yrs Sex: Male : 1965 Arrival Date: 08/20/2024 Time: 17:18 Bed 14 Private MD: Diagnosis: Cough Presentation: 08/20 17:42 Chief complaint: Patient states: cough onset 1 week ago. Coronavirus screen: Client cm10 denies travel out of the [place] in the last 14 days. Ebola Screen: Patient denies travel to an Ebola-affected area in the 21 days before illness onset. Initial Sepsis Screen: Does the patient meet any 2 criteria? No. Patient's initial sepsis screen is negative. Does the patient have a suspected source of infection? No. Patient's initial sepsis screen is negative. Risk Assessment: Do you want to hurt yourself or someone else? Patient reports no desire to harm self or others. 17:42 Method Of Arrival: Ambulatory cm10 17:45 Onset of symptoms is unknown. cm10 17:45 Acuity: JOY 3 cm10 Triage Assessment: 17:46 General: Appears in no apparent distress. comfortable, Behavior is calm, cooperative, cm10 appropriate for age. Neuro: No deficits noted. Level of Consciousness is awake, alert, obeys commands, Oriented to person, place, time, situation, Appropriate for age. Respiratory: No deficits noted. Airway is patent Respiratory effort is even, unlabored, Respiratory pattern is regular, symmetrical. Historical: - Allergies: 17:42 No Known Allergies; cm10 - PMHx: 17:42 Anxiety; Depression; Hypertension; Myocardial infarction; Seizures; cm10 - Immunization history:: Adult Immunizations up to date. - Infectious Disease History:: Denies. - Social history:: Smoking status: Patient/guardian denies using tobacco. Assessment: 20:00 General: Appears in no apparent distress. comfortable, Behavior is calm, cooperative. rg5 Pain: Denies pain. Neuro: Level of Consciousness is awake, alert, obeys commands, Oriented to person, place, time. Cardiovascular: Denies chest pain, Patient's skin is warm and dry. Respiratory: Airway is patent Trachea midline Respiratory effort is even, unlabored, Respiratory pattern is regular, symmetrical, Breath sounds are clear bilaterally. Vital Signs: 17:45 BP 114 / 59; Pulse 59; Resp 15; Temp 98.6; Pulse Ox 100% ; Weight 110.68 kg; Height 5 cm10 ft. 11 in. ; Pain 0/10; 20:10 BP 117 / 61; Pulse 58; Resp 18; Temp 98; Pulse Ox 97% on R/A; Pain 0/10; rg5 17:45 Body Mass Index 34.03 (110.68 kg, 180.34 cm) cm10 17:45 Pain Scale: Adult cm10 20:10 Pain Scale: Adult rg5 ED Course: 17:24 Patient arrived in ED. sj2 17:28 Meng Wilson FNP-C is PHCP. dr5 17:28 Hunter Ott MD is Attending Physician. dr5 17:43 Arm band placed on right wrist. Patient placed in waiting room. cm10 17:45 Triage completed. cm10 18:12 Chest Pa And Lat (2 Views) XRAY In Process Unspecified. EDMS 18:19 PHCP role handed off by Meng Wilson FNP-C cp 18:19 Arya Loja PA is PHCP. cp 19:05 No provider procedures requiring assistance completed. Inserted saline lock: 20 gauge rg5 in right forearm, using aseptic technique. Blood collected. Flushed with 10 mL NS. 19:27 Marcus Daniel RN is Primary Nurse. le1 19:29 Aravind Mays, RN is Primary Nurse. rg5 20:32 IV discontinued, bleeding controlled, No redness/swelling at site. Pressure dressing rg5 applied. Administered Medications: No medications were administered Outcome: 20:14 Discharge ordered by MD. cp 20:33 Discharged to home ambulatory, rg5 20:33 Condition: stable 20:33 Discharge instructions given to patient, Instructed on discharge instructions, Demonstrated understanding of instructions, follow-up care, medications, Prescriptions given X 2, 20:33 Patient left the ED. rg5 Signatures: Dispatcher [employer] EDMS Arya Loja PA PA cp Martinez, Clarissa, RN RN cm10 Aravind Mays RN RN rg5 Marcus Daniel RN RN le1 Dax Agarwal sj2 Meng Wilson FNP-C CARDIOVASCULAR TECHNICIAN-Cdr5
--- NOTE | 2024-08-20 20:14 | EDPHYS ---
Physician Documentation [facility] Name: Eloy Alvarez Age: 59 yrs Sex: Male : 1965 Arrival Date: 08/20/2024 Time: 17:18 Bed 14 Private MD: ED Physician Hunter Ott HPI: 08/20 17:47 This 59 yrs old Male presents to ER via Ambulatory with complaints of Cough, dr5 Chest Congestion. 18:09 Patient is a 59-year-old male with history of anxiety, depression, hypertension, NM dr5 with stent, seizures coming in with cough and congestion for the past 1 week. Patient denies chest pain or abdominal pain or fever. Patient states that he was a heavy previous smoker and has stopped. Patient reports that he is here to rule out walking pneumonia.. Historical: - Allergies: 17:42 No Known Allergies; cm10 - PMHx: 17:42 Anxiety; Depression; Hypertension; Myocardial infarction; Seizures; cm10 - Immunization history:: Adult Immunizations up to date. - Infectious Disease History:: Denies. - Social history:: Smoking status: Patient/guardian denies using tobacco. ROS: 18:09 Constitutional: as per hpi dr5 Exam: 18:09 Constitutional: This is a well developed, well nourished patient who is awake, alert, dr5 and in no acute distress. Head/Face: Normocephalic, atraumatic. Eyes: Pupils equal round and reactive to light, extra-ocular motions intact. Lids and lashes normal. Conjunctiva and sclera are non-icteric and not injected. Cornea within normal limits. Periorbital areas with no swelling, redness, or edema. ENT: Nares patent. No nasal discharge, no septal abnormalities noted. Tympanic membranes are normal and external auditory canals are clear. Oropharynx with no redness, swelling, or masses, exudates, or evidence of obstruction, uvula midline. Mucous membranes moist. Neck: Trachea midline, no thyromegaly or masses palpated, and no cervical lymphadenopathy. Supple, full range of motion without nuchal rigidity, or vertebral point tenderness. No Meningismus. Chest/axilla: Normal chest wall appearance and motion. Nontender with no deformity. No lesions are appreciated. Cardiovascular: Regular rate and rhythm with a normal S1 and S2. Normal PMI, no JVD. No pulse deficits. Respiratory: Lungs have equal breath sounds bilaterally, clear to auscultation. No rales, rhonchi or wheezes noted. No increased work of breathing, no retractions or nasal flaring. Back: No spinal tenderness. No costovertebral tenderness. Full range of motion. Skin: Warm, dry with normal turgor. Normal color with no rashes, no lesions, and no evidence of cellulitis. Neuro: Awake and alert, GCS 15, oriented to person, place, time, and situation. Cranial nerves II-XII grossly intact. Motor strength 5/5 in all extremities. Sensory grossly intact. Cerebellar exam normal. Normal gait. 20:05 ECG was reviewed by the Attending Physician. cp Vital Signs: 17:45 BP 114 / 59; Pulse 59; Resp 15; Temp 98.6; Pulse Ox 100% ; Weight 110.68 kg; Height 5 cm10 ft. 11 in. ; Pain 0/10; 20:10 BP 117 / 61; Pulse 58; Resp 18; Temp 98; Pulse Ox 97% on R/A; Pain 0/10; rg5 17:45 Body Mass Index 34.03 (110.68 kg, 180.34 cm) cm10 17:45 Pain Scale: Adult cm10 20:10 Pain Scale: Adult rg5 MDM: 17:29 Medical Screening Exam initiated dr5 18:00 Differential Diagnosis: Bronchitis Influenza Otitis Media Viral Syndrome Pneumonia cp Other acute NM, pulmonary edema. 20:14 Data reviewed: vital signs, nurses notes, lab test result(s), EKG, radiologic studies, cp plain films, and as a result, I will discharge patient. 20:14 Independent interpretation of the following test(s) in the Emergency Department EKG: cp See my EKG interpretation above. Counseling: I had a detailed discussion with the patient and/or guardian regarding the historical points, exam findings, and any diagnostic results supporting the discharge/admit diagnosis, lab results, radiology results, to return to the emergency department if symptoms worsen or persist or if there are any questions or concerns that arise at home. 08/20 17:46 Order name: Basic Metabolic Panel; Complete Time: 20:13 dr5 08/20 20:13 Interpretation: Normal except: GFR 77. cp 08/20 17:46 Order name: CBC with Diff; Complete Time: 20:13 dr5 08/20 17:46 Order name: Troponin HS; Complete Time: 20:13 [facility] 08/20 17:46 Order name: Chest Pa And Lat (2 Views) XRAY; Complete Time: 19:19 [facility] 08/20 19:19 Interpretation: Report reviewed. cp 08/20 17:46 Order name: Cardiac monitoring; Complete Time: 20:01 [facility] 08/20 17:46 Order name: EKG - Nurse/Tech; Complete Time: 20: [facility] 08/20 17:46 Order name: IV Saline Lock; Complete Time: 20: [facility] 08/20 17:46 Order name: Labs collected and sent; Complete Time: 20: [facility] 08/20 17:46 Order name: O2 Per Protocol; Complete Time: 20: [facility] 08/20 17:46 Order name: O2 Sat Monitoring; Complete Time: 20: [facility] EC:05 Rate is 57 beats/min. Rhythm is regular. [place] interval is normal. QRS interval is cp prolonged at 126 msec. QT interval is normal. T waves are Inverted in lead aVR. Interpreted by me. Reviewed by me. Administered Medications: No medications were administered Disposition Summary: 08/20/24 20:14 Discharge Ordered Notes: Location: Home cp Problem: new cp Symptoms: are unchanged cp Condition: Stable cp Diagnosis - Cough cp Followup: cp - With: Private Physician - When: 2 - 3 days - Reason: Worsening of condition Discharge Instructions: - Discharge Summary Sheet cp - Cough, Adult cp Forms: - Medication Reconciliation Form cp - Antibiotic Education cp - Prescription Opioid Use cp - Patient Portal Instructions cp - Leadership Thank You Letter cp Prescriptions: - Bromfed DM 2-30-10 mg/5 mL Oral syrup - administer 10 milliliter ORAL route 3-4 times daily as needed for cold cp symptoms; 240 milliliter; Refills: 0, Product Selection Permitted - Zithromax Z-Eleazar 250 mg Oral Tablet - take 1 tablet ORAL route as directed for 5 days Day 1 - take two (2) tablets cp one time. Day 2, 3, 4 , 5 take one (1) tablet once daily.; 6 tablet; Refills: 0, Product Selection Permitted Signatures: Dispatcher [employer] EDMS Arya Loja PA PA cp Martinez, Clarissa, RN RN cm10 Meng Wilson, IRON-C COLLIERY CLERK-[facility]5 Corrections: (The following items were deleted from the chart) 17:47 17:47 BASIC METABOLIC PANEL+C.LAB.BRZ ordered. EDMS EDMS 17:47 17:47 CBC+H.LAB.BRZ ordered. EDMS EDMS 17:47 17:47 Troponin High Sensitivity+C.LAB.BRZ ordered. EDMS EDMS 17:47 17:47 Chest Pa And Lat (2 Views)+RAD.RAD.BRZ ordered. EDMS EDMS
[2024-08-20 21:48] VITALS: BP 117/61; TEMP 98; O2SAT 97
--- NOTE | 2024-08-22 11:21 | EKG ---
Test Date: 2024-08-20 Test Time: 19:58:04 Company Marker: [employer] MEASUREMENT RESULTS: Intervals: Rate: 57 UT: 190 QRSD: 126 QT: 442 QTc: 430 [place]: P: 44 UT: 190 QRS: -26 T: 58 INTERPRETIVE STATEMENTS: Sinus bradycardia Left ventricular hypertrophy with QRS widening Cannot rule out Septal infarct, age undetermined Lateral infarct, age undetermined Possible Inferior infarct, age undetermined Abnormal ECG Compared to ECG 02/03/2019 02:37:59 Left ventricular hypertrophy now present Myocardial infarct finding still present Electronically Signed On 08-22-24 11:18:13 CDT by Tariq Montelongo
== END 2024-08-20 20:33 | disposition home or self-care (01) ==
LOC: ER 17:18
DX: R05.9 Cough, unspecified (principal); F41.9 Anxiety disorder, unspecified; I10 Essential (primary) hypertension; I25.2 Old myocardial infarction
CPT/HCPCS: 36415; 71046; 80048; 84484; 85025; 93005; 99284